=== PATIENT | female | born 1955 | race Caucasian/White ===

== ENCOUNTER → 2017-04-16 09:20 | Outpatient (CLI) | payer MEDICAID, SELFPAY ==
--- NOTE | 2017-04-16 09:24 | MM_ITS ---
MM Dig screening mamm BI w/CAD CAD Screening COMPARISON: Digital mammograms 02/22/2016 and 02/19/2015 INDICATION: There is a history of breast cancer in patient's sister diagnosed after menopause. TECHNIQUE: Standard CC and MLO images were obtained. R2 CAD reviewed. FINDINGS: Moderate scattered fiber glandular densities are seen in the central portions of both breasts and the findings are bilateral and symmetrical. There is no new or suspicious lesion in either breast and there are no suspicious microcalcifications. IMPRESSION: Moderate diffuse breast density with no suspicious lesion seen BI-RADS Category: 1 Negative RECOMMENDED FOLLOW-UP: 1YR - 1 YEAR FOLLOW-UP (A letter has been sent to the patient regarding results of the study.)
== END ==
PROVIDERS: PCP Family Medicine; Visit Provider Family Medicine
DX: Z12.31 Encounter for screening mammogram for malignant neoplasm of breast (principal)
CPT/HCPCS: 77067

== ENCOUNTER → 2018-04-19 08:57 | Outpatient (CLI) | payer MEDICAID, SELFPAY ==
--- NOTE | 2018-04-19 09:02 | MM_ITS ---
MM Dig screening mamm BI w/CAD CAD Screening COMPARISON: Digital mammograms with CAD 02/22/2016 and 04/16/2017 INDICATION: There is a history of breast cancer in patient's sister diagnosed at age 60 TECHNIQUE: Standard CC and MLO images were obtained. R2 CAD reviewed. FINDINGS: Mild to moderate diffuse fibroglandular densities are seen in the central portions of both breast. There is a possible asymmetric density inner quadrant left breast only definitely seen on the cc view. It has been seen previously but appears slightly more prominent on today's study which could be simply due to difference in compression. However recommend patient return for spot compression CC view and MLO view and 90 degrees lateral view left breast. Ultrasound may be necessary as well. There are no suspicious microcalcifications. IMPRESSION: Moderate breast density with possible asymmetric density left breast versus summation shadow since it is only definitely seen on the cc view but recommend additional views BI-RADS Category: 0 Need Additional Imaging Evaluation RECOMMENDED FOLLOW-UP: IMM - IMMEDIATE FOLLOW-UP RECOMMENDED (A letter has been sent to the patient regarding results of the study.)
== END ==
PROVIDERS: PCP Family Medicine; Visit Provider Family Medicine
DX: Z12.31 Encounter for screening mammogram for malignant neoplasm of breast (principal)
CPT/HCPCS: 77067

== ENCOUNTER → 2018-04-29 12:50 | Outpatient (CLI) | payer MEDICAID, SELFPAY ==
--- NOTE | 2018-04-29 12:54 | MM_ITS ---
MM Dig mamm DX unilat LT CAD US breast LT complete, COMPARISON: Digital mammograms March 2018, November 2012 & January 2014 INDICATION: Follow-up asymmetric density. Patient sister with of breast cancer. TECHNIQUE: Left breast spot cc and mlo and 90 degrees view left breast performed.. Subsequent ultrasound left breast =-========= DIAGNOSTIC LEFT MAMMOGRAM WITH SPOT VIEWS The breasts demonstrate mild asymmetry. We again see the asymmetric fibroglandular features at left breast. No Area of greater concern then another. No significant change versus 2018 & 2016.,. Previously noted area very subtle low-density area at the deep medial left breast, on cc view again observed but less evident and appears stable since prior studies. Ultrasound reveals no findings here either. ULTRASOUND LEFT BREAST including axillary survey Ultrasound of the entire left breast shows no cyst nor mass lesion. No areas of architectural distortion. No areas of concern on ultrasound Survey of axillary region with no significant findings. Scattered small benign nodes at the axilla. Normal appearing -------IMPRESSION/SUMMARY: Left mammogram: Stable asymmetric fibroglandular elements at left breast but with no new areas significant concern. Left breast Ultrasound unremarkable. No areas of concern BI-RADS Category: 2 Benign Finding(s) RECOMMENDED FOLLOWUP: 12M 12 MONTH FOLLOW-UP (A letter has been sent to the patient regarding results of the study.)
== END ==
PROVIDERS: PCP Family Medicine; Visit Provider Family Medicine
DX: R92.8 Other abnormal and inconclusive findings on diagnostic imaging of breast (principal)
CPT/HCPCS: 76641; 77065

== ENCOUNTER → 2020-02-28 12:53 | Outpatient (CLI) | payer OTHER, SELFPAY ==
--- NOTE | 2020-02-28 12:56 | MM_ITS ---
PROCEDURE: MM DIG SCREENING MAMM BI W/CAD Digital Breast Tomosynthesis Included CLINICAL INDICATION: SCREENING COMPARISON: MG SCBI MM Dig screening mamm BI w/CAD from 04/16/2017 [facility]BI MM Dig screening mamm BI w/CAD from 04/19/2018 MG DXLT MM Dig mamm DX unilat LT CAD from 04/29/2018 TECHNIQUE: Standard CC and MLO images and 3D Tomosynthesis was obtained. R2 CAD reviewed. FINDINGS: Moderate diffuse fibroglandular densities are seen throughout both breast there are couple of benign-appearing microcalcifications in each breast. There are no CAD markings. There is no suspicious lesion and no suspicious microcalcifications. IMPRESSION: Fibrofatty parenchyma with no suspicious lesions seen BI-RAD Category: 2 Benign Finding(s) FOLLOW-UP: 1YR 1 Year Follow-up (A letter has been sent to the patient regarding results of the study.) Dictated by: Dr. Huseyin Rodriguez MD 03/03/2020 09:53 Dr. Huseyin Rodriguez MD in [place] 03/03/2020 09:53
== END ==
PROVIDERS: PCP Family Medicine; Visit Provider Family Medicine
DX: Z12.31 Encounter for screening mammogram for malignant neoplasm of breast (principal)
CPT/HCPCS: 77063; 77067

== ENCOUNTER 2020-10-17 15:11 | Emergency (ER) | payer OTHER, SELFPAY ==
[2020-10-17 16:29] VITALS: BP 122/75; PULSE 72; RESP 16; TEMP 36.7; O2SAT 98; BMI 21.2
--- NOTE | 2020-10-17 16:41 | HMH.EDUTC ---
[facility] – [place] Disposition Clinical Impression: Encounter for laboratory testing for COVID-19 virus Disposition: Home, Self-Care Condition on Discharge: Good Instructions: DI for COVID-19 (Suspected or Confirmed ), Coronavirus Disease 2019, Preventing the Spread of Coronavirus Discharge Instructions Additional Instructions: *Monitor Temp, Over the counter Motrin or Tylenol as directed/as needed Tylenol every 4 hours and Motrin every 6 hours (as long as your family doctor has told you that you can take it) for fever or pain. and straight to ER if unable to lower temp less than 101.0 after medication given Follow up IMMEDIATELY for new or worsening symptoms or no Noticeable improvement over the next 48-72 hours. 911 for difficulty breathing or swallowing You were tested for today for COVID19 your test result should be back in the next 24-48 hours, you may call to the [facility] to see if your test results are back in the next 48 hours [phone] [facility] hours are 9am-9pm You was given a handout with instructions for Self Quarantine and Self isolation for while you wait on test results and what to do if they are positive If you are positive the Health Dept will be contacting you also Make sure to take your Vitamins Vit. C Vit D and Zinc if you can take them Referrals: Mau Lay MD [Primary Care Provider] - As needed Time of Disposition: 16:42 Medical Decision Making - Russell Inquiry Pt receiving controlled substance: No Russell was queried for this patient: No Vital Signs: 10/17/20 16:29 Temperature 98.0 F Temperature Source Oral Pulse Rate [Right Radial] 72 Respiratory Rate 16 Blood Pressure [Right Arm] 122/75 Blood Pressure Mean [Right Arm] 90 Blood Pressure Source [Right Arm] Automatic Cuff Blood Pressure Position [Right Arm] Sitting 02 Sat by Pulse Oximetry 98 Oxygen Delivery Method Room Air Orders (Tests/Meds): ORDERS Category Date Time Status Covid-19 Nasal PCR ([facility]) Routine Lab 10/17/20 16:33 Ordered [facility] [place] HPI - General Stated complaint: covid test Time Seen by Provider: 10/17/20 16:41 Mode of Arrival: Ambulatory Source of Information: Patient Limitations: No Limitations Description of Symptoms (Recalled from Triage Doc. by RN): pt requesting a covid test, states exposed approx 1 week ago, no symptoms HEENT Symptoms (Recalled from RN notes): No Resp Symptoms (Recalled from RN notes): No Skin Symptoms (Recalled from RN notes): No MS Symptoms (Recalled from RN notes): No Functional Status (Recalled from RN notes): n/a - History of Present Illness Provider Complaint: Patient states that she was around family member last week that tested positive for COVID states that she is not having any symptoms but wanted to get tested - Related Data Allergies Allergy/AdvReac Type Severity Reaction Status Date / Time oxytetracycline Allergy Unknown Unverified 02/10/17 14:32 [OXYTETRACYCLINE] polymyxin B [POLYMYXIN B] Allergy Unknown Unverified 02/10/17 14:32 - Worker's Comp Is this a Worker's Comp case?: No [facility] History - Hepatitis A Screen Drug use history?: No High risk sexual behaviors?: No History of sexually transmitted infection?: No Currently employed?: No Childcare worker?: No Do you have indoor plumbing?: Yes Do you have electricity?: Yes Attestation statement:: This patient has been screened for Hepatitis A risk factors. I have reviewed the patient's past medical history: Yes ROS Obtained: Yes All systems reviewed & no additional complaints, Yes Systems reviewed as appropriate & no additional complaints - Constitutional Constitutional: Reports system reviewed and no additional complaints, except as docu, Denies body ache, Denies chills, Denies fever(s) - ENT Ears, Nose, Mouth, and Throat: Reports system reviewed and no additional complaints, except as docu, Reports as per HPI, Denies nasal congestion, Denies nasal discharge, Denies sore throat - Cardiovascular Cardiovasc
[2020-10-17 16:46] VITALS: BP 122/75; PULSE 72; RESP 16; TEMP 36.7; O2SAT 98
== END 2020-10-17 16:46 | disposition home or self-care (01) ==
PROVIDERS: Emergency Provider Nurse Practitioner; PCP Family Medicine
DX: Z20.822 Contact with and (suspected) exposure to COVID-19 (principal)
CPT/HCPCS: 99202; G0463; U0003